=== PATIENT | male | born 1955 | race Caucasian/White ===

== ENCOUNTER 2018-05-13 16:00 | Emergency (ER) | payer BC ==
[~2018-05-13 16:00] MED LIST: ASPIRIN E.C.325 MG PO; CARVEDILOL25 MG PO; DIFLUCAN100 MG PO; EFFIENT10 MG PO; KLOR-CON 1010 MEQ PO; LOTREL PO; LOTRISONE 0.05%1 CRE TP; SYNTHROID0.05 MG PO; VYTORIN 10 MG-41 TA1 PO
[2018-05-13 16:23] LABS: BILIRUBIN NEGATIVE (NEGATIVE); BLOOD NEGATIVE (NEGATIVE); CLARITY SL CLOUDY (CLEAR); COLOR YELLOW (YELLOW); GLUCOSE NEGATIVE (NEGATIVE); KETONE NEGATIVE (NEGATIVE); LEUKO ESTERASE NEGATIVE (NEGATIVE); NITRITE NEGATIVE (NEGATIVE); PH 7.5 (5.0-9.0); UROBILINOGEN 0.2 E.U./dl (0.2-1.0)
[2018-05-13 16:35] LABS: BACTERIA 2+; EPITHELIAL CELLS 0-2; RBC 0-2 rbc/hpf (0-2)
[2018-05-13 17:19] LABS: BASO % 0.5 % (0.0-1.0); EOS # 0.3 10*3/uL (0.0-0.4); EOS % 7.3 % (1.0-4.0); HEMATOCRIT 39.8 % (42.0-52.0); HEMOGLOBIN 13.4 g/dl (14.0-18.0); LYMPH # 1.4 10*3/uL (1.3-4.4); LYMPH % 37.4 % (27.0-41.0); MEAN CELL VOLUME 88.2 fl (80.0-94.0); MEAN CORPUSCULAR HGB 29.7 pg (27.0-31.0); MEAN CORPUSCULAR HGB CONC 33.7 g/dl (33.0-37.0); MEAN PLATELET VOLUME 10.5 fl (9.6-12.3); MONO # 0.5 10*3/uL (0.1-1.0); MONO % 11.9 % (3.0-9.0); NEUT # 1.6 10*3/uL (2.3-7.9); NEUT % 42.6 % (47.0-73.0); PLATELET COUNT AUTOMATED 150 10*3/uL (130-400); RED BLOOD COUNT 4.51 10*6/uL (4.50-5.90); RED CELL DISTRI WIDTH 12.4 % (0-14.5); WHITE BLOOD COUNT 3.9 10*3/uL (4.8-10.8)
[2018-05-13 17:33] LABS: ALBUMIN 3.6 gm/dl (3.1-4.5); ALKALINE PHOSPHATASE 70 U/L (45-117); BUN 12 mg/dl (7-24); CHLORIDE 110 mmol/L (98-107); CREATININE 0.85 mg/dL (0.70-1.30); POTASSIUM 3.3 mmol/L (3.5-5.1); SGOT/AST 16 IU/L (3-35); SGPT/ALT 23 U/L (12-78); SODIUM 143 mmol/L (136-145)
[2018-05-13] MEDS ORDERED: CEPHALEXIN500 M1 PO (18:24)
== END 2018-05-13 18:38 | disposition home or self-care (01) ==
LOC: ED 16:00
PROVIDERS: Emergency Medicine; Nurse Practitioner Family
DX: N44.2 Benign cyst of testis (principal); N43.3 Hydrocele, unspecified; R30.0 Dysuria; R30.9 Painful micturition, unspecified; Z79.899 Other long term (current) drug therapy; Z79.82 Long term (current) use of aspirin

== ENCOUNTER → 2018-12-04 | Day surgery (SDC) | payer MEDICARE ==
[~2018-12-04] VITALS: Ht 177.8 cm; Wt 79.4 kg
[~2018-12-04] MED LIST changes: +CEPHALEXIN500 M1 PO; +FISH OIL 1,0001 EAC4 PO
--- NOTE | ~2018-12-04 | PROC NOTE ---
[place], [place] PROCEDURE NOTE NAME: JANNETTE REYES UNIT #: [id number] ROOM: DOCTOR: CHAPIN REYES MD BIRTHDATE: [birth year] DOS: 12/04/2018 PREOPERATIVE DIAGNOSIS: Anemia. POSTOPERATIVE DIAGNOSIS: Normal colon. PROCEDURE: Colonoscopy. ENDOSCOPIST: Chapin Reyes MD DARKROOM WORKER: MANDIE. ANESTHESIA: MAC. INDICATIONS: This is a 63-year-old gentleman here for a colonoscopy for workup of anemia. The procedure and its complications were explained to the patient in detail preoperatively. Complications that were discussed included, but were not limited to, bleeding, colon perforation, and prolonged pain and missed lesions. He agreed to proceed. DESCRIPTION OF PROCEDURE: After identifying the patient, the patient was brought to the endoscopy suite and placed in the left lateral position. After time-out procedure was called, IV sedation was administered by the anesthesia team. A digital rectal exam was performed, which was within normal limits. There was no blood on the examining finger. An adult colonoscope was now introduced into the anal canal and advanced sequentially into the rectum, sigmoid colon, descending colon, transverse colon and ascending colon up to the cecum. Upon reaching the cecum, the scope was withdrawn. Prep was found to be optimal. There were no obvious lesions seen in the entirety of the colon. Once the scope was withdrawn, the patient was brought back to the recovery room in stable fashion. Based on these findings, the patient is recommended to have another colonoscopy in 10 years or sooner if new symptoms appear. These findings were discussed with the patient's son in the recovery room and will be discussed with the patient himself in the office shortly. Chapin Reyes MD CM:PROCNOTE:PROCEDURE NOTE [id number] CHAPIN REYES MD
[2018-12-04 08:54] VITALS: BP 178/90
[2018-12-04 09:50] VITALS: BP 132/90
[2018-12-04 10:05] VITALS: BP 139/90
[2018-12-04 10:19] VITALS: BP 114/90
== END | disposition home or self-care (01) ==
LOC: SDC 12-02 11:45
DX: D64.9 Anemia, unspecified (principal); I10 Essential (primary) hypertension; E03.9 Hypothyroidism, unspecified; I25.10 Atherosclerotic heart disease of native coronary artery without angina pectoris; E78.5 Hyperlipidemia, unspecified; M19.90 Unspecified osteoarthritis, unspecified site; F17.210 Nicotine dependence, cigarettes, uncomplicated; Z98.890 Other specified postprocedural states; Z79.899 Other long term (current) drug therapy; Z95.5 Presence of coronary angioplasty implant and graft; Z82.49 Family history of ischemic heart disease and other diseases of the circulatory system

== ENCOUNTER 2020-01-25 20:52 | Inpatient (IN) | payer MEDICARE ==
[~2020-01-25] VITALS: Ht 177.8 cm; Wt 77.1 kg
[2020-01-25 15:15] VITALS: BP 149/70
[2020-01-25 20:57] VITALS: BP 139/64
[2020-01-25 21:38] LABS: HEMATOCRIT 39.1 % (42.0-52.0); MEAN CELL VOLUME 88.5 fl (80.0-94.0); MEAN CORPUSCULAR HGB 29.6 pg (27.0-31.0); MEAN CORPUSCULAR HGB CONC 33.5 g/dl (33.0-37.0); MEAN PLATELET VOLUME 10.3 fl (9.6-12.3); PLATELET COUNT AUTOMATED 161 10*3/uL (130-400); RED BLOOD COUNT 4.42 10*6/uL (4.50-5.90); RED CELL DISTRI WIDTH 12.4 % (0-14.5); WHITE BLOOD COUNT 15.6 10*3/uL (4.8-10.8)
[2020-01-25 21:50] LABS: ACT PARTIAL THROMBO TIME 27.9 SECONDS (20.0-32.1)
[2020-01-25 22:06] LABS: ATYPICAL LYMPHS 1 % (0-0); TOTAL CELLS COUNTED 100 #CELLS
[2020-01-25 22:07] LABS: ALBUMIN 3.5 gm/dl (3.1-4.5); ALKALINE PHOSPHATASE 69 U/L (45-117); BUN 22 mg/dl (7-24); CHLORIDE 104 mmol/L (98-107); CREATININE 1.44 mg/dL (0.70-1.30); LIPASE 129 U/L (73-393); PLATELET SUFFICIENCY NORMAL (NORMAL); POTASSIUM 3.2 mmol/L (3.5-5.1); SGOT/AST 13 IU/L (3-35); SGPT/ALT 17 U/L (12-78); SODIUM 136 mmol/L (136-145); TOTAL PROTEIN 7.7 gm/dL (6.4-8.2); TROPONIN I < 0.015 ng/ml (<0.045)
[2020-01-25 22:19] LABS: BILIRUBIN Negative (Negative); BLOOD Negative (Negative); CLARITY Clear (Clear); COLOR Yellow (Yellow); GLUCOSE Negative (Negative); KETONE Negative (Negative); LEUKO ESTERASE Negative (Negative); NITRITE Negative (Negative); PH 5.5 (4.5-8.0); SPECIFIC GRAVITY <= 1.005 (1.001-1.030); UROBILINOGEN 0.2 E.U./dl (0.0-1.0)
[2020-01-25 22:39] LABS: RBC 0-2 rbc/hpf (0-2); WBC 0-2 wbc/hpf (0-5)
[2020-01-26] VITALS (8 sets, daily range): BP systolic 109–149; BP diastolic 51–74
--- NOTE | 2020-01-26 02:41 | NUR ---
PT RESTING COMFORTABLY ON COT WATCHING TELEVISION. DENIES NEEDS AT THIS TIME. NO VISIBLE WOUNDS FOUND UPON INSPECTION. PT ALSO DENIES ANY WOUNDS AT THIS TIME. SAFETY PRECAUTIONS INTACT. CALL LIGHT WITHIN REACH. WILL CONTINUE TO MONITOR.
--- NOTE | 2020-01-26 04:10 | NUR ---
PT SELF POSITIONING FOR COMFORT ON COT. SAFETY PRECAUTIONS INTACT. CALL LIGHT WITHIN REACH. DENIES NEEDS AT THIS TIME.
--- NOTE | 2020-01-26 05:28 | NUR ---
PT SELF POSITIONING FOR COMFORT. BED RAILS X 2. CALL LIGHT WITH IN REACH.
[2020-01-26 05:55] LABS: ALBUMIN 2.9 gm/dl (3.1-4.5); BUN 15 mg/dl (7-24); CHLORIDE 112 mmol/L (98-107); CHOLESTEROL 133 mg/dL (<200); CREATININE 0.96 mg/dL (0.70-1.30); POTASSIUM 3.7 mmol/L (3.5-5.1); SGOT/AST 14 IU/L (3-35); SGPT/ALT 15 U/L (12-78); SODIUM 144 mmol/L (136-145); TOTAL PROTEIN 6.7 gm/dL (6.4-8.2); TRIGLYCERIDES 106 mg/dl (<150); VLDL CHOLESTEROL 21 mg/dL (6-40)
[2020-01-26 06:02] LABS: ALKALINE PHOSPHATASE 58 U/L (45-117); FREE T4 1.11 ng/dl (0.76-1.46); HDL CHOLESTEROL 33 mg/dl (40-60); LDL CHOLESTEROL 79 mg/dL (9-159); THYROID STIM HORMONE (HS) 0.376 uIU/ml (0.358-4.75)
[2020-01-26 06:15] LABS: BASO % 0.3 % (0.0-1.0); EOS # 0.1 10*3/uL (0.0-0.4); EOS % 1.1 % (1.0-4.0); HEMATOCRIT 35.5 % (42.0-52.0); LYMPH # 1.2 10*3/uL (1.3-4.4); LYMPH % 9.5 % (27.0-41.0); MEAN CELL VOLUME 90.3 fl (80.0-94.0); MEAN CORPUSCULAR HGB 30.3 pg (27.0-31.0); MEAN CORPUSCULAR HGB CONC 33.5 g/dl (33.0-37.0); MEAN PLATELET VOLUME 10.9 fl (9.6-12.3); MONO # 1.2 10*3/uL (0.1-1.0); MONO % 10.1 % (3.0-9.0); NEUT # 9.6 10*3/uL (2.3-7.9); NEUT % 78.6 % (47.0-73.0); PLATELET COUNT AUTOMATED 147 10*3/uL (130-400); RED BLOOD COUNT 3.93 10*6/uL (4.50-5.90); RED CELL DISTRI WIDTH 12.5 % (0-14.5); WHITE BLOOD COUNT 12.2 10*3/uL (4.8-10.8)
--- NOTE | 2020-01-26 06:17 | NUR ---
PT SELF POSITIONING FOR COMFORT. SAFETY PRECAUTIONS INTACT. WILL CONTINUE TO MONITOR.
[2020-01-26 06:29] LABS: ACT PARTIAL THROMBO TIME 27.4 SECONDS (20.0-32.1)
--- NOTE | 2020-01-26 08:03 | NUR ---
PT AWAKE AND ORINETED X3. PT HERE WITH CELULITIS OF THE LT LOWER EXTERMITY. PT DENIES ANY PAIN ATTHE PRESENTS. AREA IS RED WITH SLIGHT EDEMA NOTED, REDNESS STARES AT THE LT IN THIGH AND TRAVELS DOWN TO THE PT MID CALF.
--- NOTE | 2020-01-26 08:12 | NUR ---
DR OLSON NOTIFIED OF CONSULT. NO NEW ORDERS OBTAINED.
--- NOTE | 2020-01-26 08:30 | NUR ---
pt off the floor to us.
[2020-01-26 08:38] LABS: VITAMIN D, 25-HYDROXY 37.1 ng/mL (30-100)
--- NOTE | 2020-01-26 09:30 | NUR ---
pt rusty delaney in chair eatting breakfast, voices no c/o.
--- NOTE | 2020-01-26 13:09 | NUR ---
CALLED [facility] THEY ARE FAXING MED LIST
[2020-01-26] MEDS ORDERED: MULTIVITAMINS1 EAC5 PO (13:17)
--- NOTE | 2020-01-26 15:15 | NUR ---
Time: 1514 A 64 year old MALE admitted to 5E under services of SHARYN STOUT DO. Pt. arrived via bed from ER. Chief complaint: SEPSIS, CELLULITIS. JOSEY PRITCHETT
[2020-01-26] MEDS ORDERED: ATORVASTATIN CA10 M1 PO (15:28)
--- NOTE | 2020-01-26 17:11 | NUR ---
CALLED DR. EWING MADE AWARE PT STATES HE DON'T TAKE COREG AT HOME. HE HASN'T TAKEN IT IN GOING ON 2 WEEKS. ALSO WHEN HE WAS TAKING IT HE WOULD TAKE ONE OR TWO A DAY.
--- NOTE | 2020-01-26 18:00 | NUR ---
DR. AQUINO INTO SEE PT.
--- NOTE | 2020-01-26 21:00 | NUR ---
RESTING IN BED WITH NO ACUTE DISTRESS NOTED. RESPIRATIONS EASY. LUNGS DIMINISHED, CLEAR. PULSE OX 97% RA. 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 CALL LIGHT WITHIN REACH. NO VOICED COMPLAINTS
--- NOTE | 2020-01-26 23:19 | NUR ---
24 HR chart check completed.
[2020-01-27] VITALS: BP 135/64
--- NOTE | 2020-01-27 | NUR ---
SLEEPING. NO DISTRESS NOTED. RESPIRATIONS EASY. VSS. CALL LIGHT WITHIN REACH
--- NOTE | 2020-01-27 06:00 | NUR ---
SLEPT THROUGHOUT NIGHT WITH NO DISTRESS NOTED. RESPIRATIONS EASY. CALL LIGHT WITHIN REACH. NO VOICED COMPLAINTS. CONTINUES TO DENY NEED FOR PAIN MEDS
[2020-01-27 06:36] LABS: BASO % 0.5 % (0.0-1.0); EOS # 0.3 10*3/uL (0.0-0.4); EOS % 3.6 % (1.0-4.0); HEMATOCRIT 35.4 % (42.0-52.0); LYMPH # 1.6 10*3/uL (1.3-4.4); LYMPH % 18.5 % (27.0-41.0); MEAN CELL VOLUME 91.2 fl (80.0-94.0); MEAN CORPUSCULAR HGB 29.6 pg (27.0-31.0); MEAN CORPUSCULAR HGB CONC 32.5 g/dl (33.0-37.0); MONO # 0.9 10*3/uL (0.1-1.0); MONO % 9.8 % (3.0-9.0); NEUT # 5.9 10*3/uL (2.3-7.9); NEUT % 67.3 % (47.0-73.0); PLATELET COUNT AUTOMATED 157 10*3/uL (130-400); RED BLOOD COUNT 3.88 10*6/uL (4.50-5.90); RED CELL DISTRI WIDTH 12.6 % (0-14.5); WHITE BLOOD COUNT 8.8 10*3/uL (4.8-10.8)
[2020-01-27 07:07] LABS: ALBUMIN 2.8 gm/dl (3.1-4.5); ALKALINE PHOSPHATASE 58 U/L (45-117); BUN 8 mg/dl (7-24); CHLORIDE 112 mmol/L (98-107); CREATININE 0.74 mg/dL (0.70-1.30); POTASSIUM 3.1 mmol/L (3.5-5.1); SGOT/AST 13 IU/L (3-35); SGPT/ALT 13 U/L (12-78); SODIUM 143 mmol/L (136-145); TOTAL PROTEIN 6.5 gm/dL (6.4-8.2)
[2020-01-27 08:00] VITALS: BP 137/67
--- NOTE | 2020-01-27 09:00 | NUR ---
CONTACT PRECAUTIONS REMOVED.
--- NOTE | 2020-01-27 10:52 | NUR ---
[employer] Machine Helper in to talk to patient. Patient states lives at home with his . There are 2 flights of steps in the home. Physician: Lalo Adams Pharmacy: [facility] Home health services: none Patient's level of ADLs: INDEPENDENT Patient has working utilities: yes DME: none Follow-up physician's appointment after d/c: will be made by the hospitalist nurse director upon discharge Does patient want to access PORTAL?: no Discharge plan discussed with patient. He lives at home with his . He states he is independent in his ADLs and ambulation. Discussed home health care services and he declines. CM will continue to follow for any discharge planning needs. When medically stable he will be discharged to home. He states his son will provide transportation on discharge. MESSI RON
[2020-01-27 12:00] VITALS: BP 117/64
[2020-01-27 16:00] VITALS: BP 114/75
[2020-01-27 20:00] VITALS: BP 122/49
[2020-01-28] VITALS: BP 128/62
[2020-01-28 08:00] VITALS: BP 128/59
--- NOTE | 2020-01-28 08:45 | NUR ---
RESTING IN BED. NO VOICED COMPLAINTS. LEFT THIGH PINK IN COLOR AND LEFT CALF RED WITH 1+ PITTING EDEMA NOTED. DENIES ANY PAIN. LEFT LEG ELEVATED ON PILLOWS
--- NOTE | 2020-01-28 09:00 | NUR ---
CM in to see patient. No new needs or request. Discussed home health care services and he declines. CM will continue to follow for any discharge planning needs. When medically stable he will be discharged to home.
[2020-01-28] MEDS ORDERED: DOXYCYCLINE100 M3 PO (10:32)
[2020-01-28 12:00] VITALS: BP 133/58
--- NOTE | 2020-01-28 13:35 | NUR ---
Discharge instructions reviewed with patient/family. Patient receptive and verbalizes understanding. Follow-up care arranged. Written instructions given to patient/family. SHIRLEY OKEEFE
== END 2020-01-28 13:35 | disposition home or self-care (01) | DRG 871 ==
LOC: ED 20:52 → EDHOLD 21:20 → 5E 21:20
PROVIDERS: Internal Medicine; Nurse Practitioner Family; Student in an Organized Health Care Education/Training Program; ADMIT Student in an Organized Health Care Education/Training Program; ATTEND Student in an Organized Health Care Education/Training Program
DX: A41.9 Sepsis, unspecified organism (principal); N17.0 Acute kidney failure with tubular necrosis; L03.116 Cellulitis of left lower limb; L02.91 Cutaneous abscess, unspecified; R65.20 Severe sepsis without septic shock; E03.9 Hypothyroidism, unspecified; E78.5 Hyperlipidemia, unspecified; R73.9 Hyperglycemia, unspecified; D64.9 Anemia, unspecified; E83.41 Hypermagnesemia; F17.290 Nicotine dependence, other tobacco product, uncomplicated; I10 Essential (primary) hypertension; Z80.42 Family history of malignant neoplasm of prostate; Z95.5 Presence of coronary angioplasty implant and graft; Z82.49 Family history of ischemic heart disease and other diseases of the circulatory system; Z79.899 Other long term (current) drug therapy

== ENCOUNTER → 2022-07-24 | Outpatient (CLI) | payer MEDICARE ==
[~2022-07-24] MED LIST changes: +ATORVASTATIN CA10 M1 PO; +DOXYCYCLINE100 M3 PO; +MULTIVITAMINS1 EAC5 PO
== END | disposition home or self-care (01) ==
LOC: US 00:55
PROVIDERS: ATTEND Physician Assistant
DX: J43.9 Emphysema, unspecified (principal); R91.8 Other nonspecific abnormal finding of lung field; I25.10 Atherosclerotic heart disease of native coronary artery without angina pectoris; I10 Essential (primary) hypertension; F17.210 Nicotine dependence, cigarettes, uncomplicated

== ENCOUNTER 2023-12-06 09:04 | Emergency (ER) | payer OTHER ==
[~2023-12-06] VITALS: Ht 177.8 cm; Wt 81.6 kg
[2023-12-06] MEDS ORDERED: PREDNISONE20 M1 PO (10:14)
== END 2023-12-06 10:18 | disposition home or self-care (01) ==
LOC: ED 09:04
DX: L30.9 Dermatitis, unspecified (principal); I10 Essential (primary) hypertension; M19.90 Unspecified osteoarthritis, unspecified site; F17.290 Nicotine dependence, other tobacco product, uncomplicated; Z98.890 Other specified postprocedural states

== ENCOUNTER → 2024-01-06 | Outpatient (CLI) | payer OTHER ==
[~2024-01-06] MED LIST changes: +IOHEXOL 300 MG/ML 100 ML VIAL IV ONE; +IOHEXOL 300 MG/ML 100 ML VIAL ONE; +PREDNISONE20 M1 PO
== END | disposition home or self-care (01) ==
LOC: CT 01:31
PROVIDERS: ATTEND Physician Assistant
DX: K40.90 Unilateral inguinal hernia, without obstruction or gangrene, not specified as recurrent (principal); R21 Rash and other nonspecific skin eruption; R19.00 Intra-abdominal and pelvic swelling, mass and lump, unspecified site